=== PATIENT | female | born 1950 | race African-American/Black ===

== ENCOUNTER 2018-05-18 08:33 | Day surgery (SDC) ==
[2018-05-18] MEDS: TETRACAINE 0.5% UNIT-DOSE OP PRN ×2 (09:10→09:29)
[2018-05-18] MEDS: BETADINE OPTH PREP OP PRN ×2 (09:10→09:29)
[2018-05-18] MEDS: CYCLOGYL 2% OPTH OP PRN ×3 (09:11→09:21)
[2018-05-18] MEDS ORDERED: BRIMONIDINE TARTRATE 0.2% OPTH SOL OP PRN (09:20)
[2018-05-18] MEDS ORDERED: LIDOCAINE 1% 20 ML MDV ID STA (09:20)
[2018-05-18] MEDS ORDERED: ZOFRAN 4 MG/2 ML IVP ONE (09:20)
[2018-05-18] MEDS ORDERED: VERSED ONE (09:40)
[2018-05-18] MEDS ORDERED: SUBLIMAZE ONE (09:40)
[2018-05-18] MEDS: DEX-MOXI-KETOR OPTH INJ 1/0.5/0.4 MG/ML IO ONE ×2 (09:44→09:54)
[2018-05-18] MEDS: BSS WITH EPINEPHRINE OP ONE ×2 (09:44→09:47)
[2018-05-18] MEDS: LIDOCAINE 1%/PHENYLEPHRINE 1.5% BSS (SURGERY) INTRAOCULA ONE ×2 (09:44→09:47)
[2018-05-18 11:28] VITALS: TEMP 97.6
[2018-05-26 14:32] VITALS: BP 127/57
== END 2018-05-18 10:40 | disposition home or self-care (01) ==
LOC: SURG 08:33
PROVIDERS: ATTEND Ophthalmology
DX: H25.812 Combined forms of age-related cataract, left eye (principal)

== ENCOUNTER 2018-06-01 06:11 | Day surgery (SDC) ==
[2018-06-01] MEDS: BETADINE OPTH PREP OP PRN ×2 (06:40→07:02)
[2018-06-01] MEDS: CYCLOGYL 2% OPTH OP PRN ×3 (06:40→06:55)
[2018-06-01] MEDS: TETRACAINE 0.5% UNIT-DOSE OP PRN ×2 (06:40→07:02)
[2018-06-01 06:44] VITALS: BP 124/82; TEMP 97
[2018-06-01] MEDS ORDERED: BRIMONIDINE TARTRATE 0.2% OPTH SOL OP PRN (06:50)
[2018-06-01] MEDS ORDERED: LIDOCAINE 1% 20 ML MDV ID STA (06:50)
[2018-06-01] MEDS ORDERED: LIDOCAINE 1%/PHENYLEPHRINE 1.5% BSS (SURGERY) INTRAOCULA ONE (06:50)
[2018-06-01] MEDS ORDERED: DEX-MOXI-KETOR OPTH INJ 1/0.5/0.4 MG/ML IO ONE (06:50)
[2018-06-01] MEDS ORDERED: ZOFRAN 4 MG/2 ML IVP ONE (06:50)
[2018-06-01] MEDS ORDERED: BSS WITH EPINEPHRINE OP ONE (06:50)
[2018-06-01] MEDS ORDERED: VERSED ONE (07:33)
[2018-06-01] MEDS ORDERED: SUBLIMAZE ONE (07:33)
[2018-06-01] MEDS ORDERED: ZOFRAN 4 MG/2 ML ONE (07:33)
== END 2018-06-01 09:25 | disposition home or self-care (01) ==
LOC: SURG 06:11
PROVIDERS: ATTEND Ophthalmology
DX: H25.811 Combined forms of age-related cataract, right eye (principal)